=== PATIENT | male | born 2000 | race Hispanic/Latino ===

== ENCOUNTER 2018-05-28 11:32 | Inpatient (IN) | payer MEDICAID, SELFPAY ==
[~2018-05-28 11:32] MED LIST: Dexamethasone 20 MG/5 ML VIAL ONE; Hydrocortisone Sod Succ/PF 100 mg/2 ml Vial ONE; Ketorolac Tromethamine 30 MG/ML VIAL ONE; Lidocaine 1% PF 5 ML VIAL ONE; Ondansetron HCl/PF 4 MG/2 ML Vial ONE; PHENYLEPHRINE-NS 100 MCG/ML 10 ML SYRINGE ONE; PROPOFOL 200 MG/20 ML VIAL ONE; PROVENTIL INHALER 6.7 G (200 INHALATIONS) ONE; Succinylcholine Chloride 20 MG/ML 10 ml SYRINGE FS ONE
[2018-05-28 12:21] LABS: Hemoglobin 15.7 g/dL (14.0-18.0); Mean Corpuscular HGB CONC 34.5 g/dL (32.0-36.0); Mean Corpuscular Hemoglobin 30.3 pg (25.0-35.0); Mean Corpuscular Volume 87.7 fL (78.0-98.0); Mean Platelet Volume 6.5 fL (7.4-10.4); Platelet Count 334 thou/uL (130-400); RBC Distribution Width 11.7 % (11.5-14.5); Red Blood Cell (RBC) Count 5.18 mill/uL (4.00-5.20); White Blood Cell (WBC) Count 19.2 thou/uL (4.8-10.8)
[2018-05-28] MEDS ORDERED: Ondansetron HCl/PF 4 MG/2 ML Vial ONE ×2 (12:23→12:36)
[2018-05-28] MEDS ORDERED: Morphine 4 MG/ML VIAL ONE ×2 (12:23→12:36)
[2018-05-28 12:43] LABS: Band 2 % (5-11); Lymphocytes 13 % (28-48); MDiff Complete? YES; Monocytes 10 % (0-4); Neutrophil 75 % (31-61)
[2018-05-28 12:53] LABS: ALT (SGPT) 172 U/L (8-55); AST (SGOT) 33 U/L (5-34); Albumin 4.6 g/dL (3.5-5.0); Alkaline Phosphatase 53 U/L (Less than 750); Anion Gap 13 mmol/L (10-20); BUN (Urea Nitrogen) 10 mg/dL (8.9-20.6); Bilirubin, Total 1.5 mg/dL (0.2-1.2); Calc. Creatinine Clearance 0 mL/min (70-130); Calcium 9.9 mg/dL (7.8-10.44); Carbon Dioxide 27 mmol/L (22-29); Chloride 98 mmol/L (98-107); Estimated GFR-MDRD 85; Globulin 3.8 g/dL (2.4-3.5); Glucose 125 mg/dL (70-105); Lipase 13 U/L (8-78); Potassium 3.9 mmol/L (3.5-5.1); Protein, Total 8.4 g/dL (6.0-8.3); Sodium 134 mmol/L (136-145)
[2018-05-28] MEDS ORDERED: ISOVUE-370 76%-LOCM 1 ML ONE (13:27)
[2018-05-28] MEDS ORDERED: Iopamidol 370 76% 50 ML VIAL FS ONE (13:27)
[2018-05-28 14:04] LABS: Bilirubin Small (Negative); Blood, Urine Negative (Negative); Clarity CLEAR (Clear); Glucose, Urine (Dipstick) Negative (Negative); Leukocyte Trace (Negative); Nitrite Negative (Negative); Protein, Urine (Dipstick) Trace mg/dL (Neg-Trace); Specific Gravity, Urine 1.024 (1.002-1.036); pH, Urine 5.5 (5.0-9.0)
[2018-05-28 14:06] LABS: Bacteria/HPF None Seen HPF (None Seen); Hyaline Casts/LPF 0-3 HYALINE CAST LPF (0-3 Hyaline); Pathc Cast-AUWi Flag 0.43 (0-2.49); RBC/HPF 0-3 HPF (0-3); Squamous Epithelial 0-3 HPF (0-3); WBC/HPF 0-3 HPF (0-3)
--- NOTE | 2018-05-28 14:26 | CT ---
CT ABDOMEN AND PELVIS WITH IV CONTRAST: Date: 05/28/18 HISTORY: Abdominal pain with onset 2 days ago. Pain originally in the epigastric region, now in the right lowe r quadrant. Nausea. FINDINGS: There is minimal bibasilar atelectasis. The liver, spleen, pancreas, bilateral adrenal glands, kidneys, abdominal aorta, incompletely distend ed urinary bladder, and opacified small bowel demonstrate a normal CT appearance. The appendix is dilated, with mild thickening of the joaquin of the appendix. The appendix measures 14. 0 mm in diameter with appendicolith seen in the proximal appendix and dilatation of the appendix just distal to the appendicolith. There are adjacent periappendiceal inflammatory changes present. No fluid collection or free intraperitoneal gas is seen in the abdomen or pelvis. Tiny amount of free fluid is seen in the pelvis. IMPRESSION: Acute appendicitis with appendicolith in the proximal appendix. Above findings discussed with Dr. Burk in the emergency department on 05/28/18 at 1403 hours. CODE CR. POS: ARMINDA
[2018-05-28] MEDS ORDERED: Acetaminophen 325 MG TAB PO PRN (14:51)
[2018-05-28] MEDS ORDERED: Dextrose 5% in Water 1,000 ML IV PRN (14:51)
[2018-05-28] MEDS ORDERED: Dextrose 50% Abboject 50 ML SYRINGE SLOW IVP PRN (14:51)
[2018-05-28] MEDS ORDERED: Ondansetron HCl/PF 4 MG/2 ML Vial IVP PRN ×2 (14:51→19:05)
[2018-05-28] MEDS ORDERED: Promethazine HCl 25 MG/ML VIAL IM PRN ×2 (14:51→19:05)
[2018-05-28] MEDS ORDERED: MEROPENEM 1 GM/50 ML 1 GM in Premix Bag 1 BAG IVPB SCH (15:00)
[2018-05-28] MEDS ORDERED: traMADol HCl 50 MG TAB PO PRN ×3 (15:02→17:15)
[2018-05-28] MEDS ORDERED: traMADol HCl 50 MG TAB PO SCH (15:30)
[2018-05-28] MEDS ORDERED: Bupivacaine/Epinephrine 0.25% 30 ML VIAL ONE (15:52)
[2018-05-28] MEDS ORDERED: Fentanyl 100 MCG/2 ML VIAL ONE (16:12)
[2018-05-28] MEDS ORDERED: Insulin Regular 300 UNITS/3 ML VIAL ONE (16:24)
[2018-05-28] MEDS ORDERED: Albuterol Sulfate HFA (OR ONLY) ONE (16:51)
[2018-05-28] MEDS ORDERED: HYDROmorphone 2 MG/ML VIAL ONE (17:05)
[2018-05-28] MEDS ORDERED: Ketorolac Tromethamine 30 MG/ML VIAL IVP SCH (18:00)
[2018-05-28] MEDS ORDERED: SUGAMMADEX SODIUM 200 MG/2 ML VIAL ONE (18:24)
[2018-05-28] MEDS ORDERED: Ketorolac Tromethamine 30 MG/ML VIAL ONE (19:03)
[2018-05-28] MEDS ORDERED: HYDROmorphone 2 MG/ML VIAL SLOW IVP PRN (19:05)
[2018-05-28] MEDS ORDERED: Promethazine HCl 25 MG/ML VIAL SLOW IVP PRN (19:05)
--- NOTE | 2018-05-28 19:27 | HP ---
DATE OF ADMISSION: 05/28/2018 HISTORY OF PRESENT ILLNESS: Mr. Olguin is a 18-year-old man presented with 3-day histor y of what started as periumbilical abdominal pain. Twenty-four hours later, the pain settled in the right lower quadrant and associated with multiple episodes of nausea and one bout of emesis. The pat ient denies any fever or chills. He denies any diarrhea. He presented to emergency department today with an exacerbation of his right lower quadrant abdominal pain which he now rates at 10/10. Last m eal was yesterday as currently he is anorexic. PAST MEDICAL HISTORY: Pertinent for asthma. SURGICAL HISTORY: He denies any previous surgeries. SOCIAL HISTORY: The patient lives independently. 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 He denies any cigarette sm oking, ethanol or illicit drug abuse. FAMILY HISTORY: Denies any family history of diabetes mellitus, COPD, heart disease, inflammatory michelle wel disease, essential hypertension or cancer. PREHOSPITALIZATION MEDICATIONS: None. ALLERGIES: Patient denies any known drug allergies. REVIEW OF SYSTEMS: Ten point review of systems essentially unremarkable except for as stated in past medical history and chief complaint. PHYSICAL EXAMINATION: GENERAL: This reveals a 18-year-old normally developed man who is otherwise coherent and interactive and appears stated age. The patient is alert and oriented x3. He appeared to be in no acute distre ss on my evaluation. VITAL SIGNS: Includes blood pressure 129/74, pulse 93, respiratory rate is 18, temperature 103.1 deg chaya Fahrenheit, oxygen saturation 96% on room air. HEENT: Reveals normocephalic and atraumatic. Pupils equal, round, and reactive to light and accommo dation. Extraocular muscles are intact bilaterally. He has no sclerae icterus present. Oral mucosa is pink and moist. No lesions are noted. NECK: Supple. No palpable lymphadenopathy or thyromegaly present. HEART: Reveals regular rate and rhythm, no murmurs or gallops auscultated. LUNGS: Clear to auscultation bilaterally. Breathing regular and unlabored. ABDOMEN: Soft with right lower quadrant tenderness at McBurney's. He has a positive Rovsing sign. Liver and spleen nonpalpable below costal margin. EXTREMITIES: Reveals 2+ radial and pedal pulses bilaterally. No ankle edema is present. NEUROLOGIC: Reveals no focal deficits present. PERTINENT LABORATORY FINDINGS: Today includes a CBC with 19,200 white blood cells, hemoglobin and he matocrit 15.7 and 45.5 respectively. Platelet count is 334,000. Metabolic profile: Sodium 134, pot assium 3.9, chloride is 98, bicarbonate is 27, BUN 10, creatinine is 1.10, glucose 125. Total biliru bin is 1.5, AST and ALT 33 and 172 respectively. Lipase is normal at 13. I have personally reviewed the CT scan of the abdomen and pelvis which is remarkable for dilated appendix with periappendiceal fat stranding and appendicolith the proximal appendix. There is minimum free fluid in the pelvis. H e has no pneumoperitoneum present. IMPRESSION: Acute appendicitis, likely with perforation. PLAN: Laparoscopic appendectomy. Above findings and plan have been discussed with the patient and h is mother at bedside. I have also informed him of the risk and benefits of the proposed surgery. Ri sks include, but not limited to bleeding, infection, injury to bowel or surrounding structures. The patient indicates understanding of information I provided him today. I have answered his questions. The patient has given consent for this admission and surgical intervention.
[2018-05-28] MEDS: Sodium Chloride 0.9% 1,000 ML IV SCH (21:02)
[2018-05-28] MEDS: Piperacillin/Tazobactam 3.375 GM in Sodium Chloride 0.9% 100 ML IVPB SCH (21:03)
[2018-05-28] MEDS: Ketorolac Tromethamine 30 MG/ML VIAL IVP SCH (21:04)
[2018-05-28] MEDS: Famotidine 20 MG TAB PO SCH (21:06)
[2018-05-28] MEDS: Polyethylene Glycol 3350 17 GM Packet PO SCH (21:06)
[2018-05-28] MEDS: Acetaminophen 325 MG TAB PO SCH (21:18)
[2018-05-29] MEDS: Acetaminophen 500 MG TAB PO SCH ×2 (00:52→06:01)
--- NOTE | 2018-05-29 01:02 | OP ---
PREOPERATIVE DIAGNOSIS: Acute appendicitis. POSTOPERATIVE DIAGNOSIS: Acute suppurative appendicitis with perforation. SURGERY PERFORMED: Laparoscopic appendectomy. SURGEON: Truman Kincaid DO ANESTHESIA: General endotracheal. ESTIMATED BLOOD LOSS: 10 mL. FLUIDS GIVEN: 1600 mL of crystalloids. SPONGE AND INSTRUMENT COUNT: Certified as correct x2. COMPLICATIONS: None apparent at the time of operation. INDICATIONS FOR PROCEDURE: This is a 18-year-old man presented with 3-day history of abdomi nal pain. Clinical and radiographic examination was consistent with acute appendicitis for which the patient was brought to the operating room for appendectomy. FINDINGS: Consistent with suppurative dilated appendix with perforation at the base. DESCRIPTION OF PROCEDURE: Informed consent was obtained from the patient who was brought to the oper ating room and placed in supine position. Following general anesthesia, abdomen was sterilely preppe d and draped in usual fashion. The skin below the umbilicus was infiltrated with 0.25% Marcaine with epinephrine. A small curvilinear infraumbilical incision was made using 11-scalpel. Umbilical stal k grasped with a Hugo and elevated. Veress needle was inserted through the incision and placed in the peritoneal cavity through which the abdomen was insufflated with 2.5 liters of CO2 gas. Intraabd ominal pressure noted at 2 mmHg. Following abdominal insufflation, Veress needle was removed and a 5 -mm trocar introduced using the Visiport under laparoscopy. Laparoscopy confirmed proper placement o f the port, no injuries to underlying structures. Additional laparoscopy reveals the right lower kristy drant partially encased by omental adhesions. Under direct laparoscopy, a 5-mm suprapubic and a 12-m m left lower quadrant ports were placed after the overlying skin were infiltrated with 0.25% Marcaine with epinephrine and appropriate incision was made. The patient was placed in a Trendelenburg posit ion, rotated to his left. I introduced a Prestige grasper through the left lower quadrant port using this to bluntly take down omental adhesions to expose a dilated retrocecal suppurative appendix. En do [place] forceps was then introduced through the suprapubic port site grasping the appendix, which was elevated. Further exploration revealed the appendix to be perforated at the base with exposed fecalith. I then used a LigaSure device to sterilely take down the mesoappendix with good hemostasis. Appendix itsel f was divided at the appendico-cecal junction between two Endoloops. Appendix was delivered off the abdominal cavity using an EndoCatch. Operative site was irrigated with saline. A #19 Efrain drain wa s introduced into the operative site and allowed to exit the abdominal cavity through the suprapubic port site. The drain was secured to intra-abdominal wall using 2-0 silk suture. Fascia of the left lower quadrant port was closed using 0 Vicryl suture and Endo closure device under laparoscopy. Abdo men was desufflated. The remainder of the ports were removed and accounted for. Skin incisions were closed using 4-0 Monocryl suture in subcuticular fashion. Dermabond was applied over the incisional closure. The patient tolerated the operation without any apparent complication and was returned to the recovery room in satisfactory condition.
[2018-05-29] MEDS: Ketorolac Tromethamine 30 MG/ML VIAL IVP SCH ×2 (02:03→06:02)
[2018-05-29] MEDS: Piperacillin/Tazobactam 3.375 GM in Sodium Chloride 0.9% 100 ML IVPB SCH ×2 (02:04→06:05)
[2018-05-29] MEDS: Acetaminophen 325 MG TAB PO SCH (02:23)
[2018-05-29] MEDS ORDERED: Sodium Chloride 0.9% 500 ML IVPB SCH (02:45)
[2018-05-29 03:58] LABS: #Neutrophils 15.1 thou/uL (1.40-6.50); %Lymphocytes 5.6 % (28.0-48.0); %Monocytes 5.6 % (0.0-4.0); %Neutrophils 88.7 % (31.0-61.0); Hemoglobin 13.2 g/dL (14.0-18.0); Mean Corpuscular HGB CONC 33.9 g/dL (32.0-36.0); Mean Corpuscular Hemoglobin 30.1 pg (25.0-35.0); Mean Corpuscular Volume 88.9 fL (78.0-98.0); Mean Platelet Volume 6.8 fL (7.4-10.4); Platelet Count 272 thou/uL (130-400); RBC Distribution Width 11.7 % (11.5-14.5); Red Blood Cell (RBC) Count 4.37 mill/uL (4.00-5.20)
[2018-05-29 04:16] LABS: Anion Gap 10 mmol/L (10-20); BUN (Urea Nitrogen) 13 mg/dL (8.9-20.6); Calc. Creatinine Clearance 210 mL/min (70-130); Calcium 8.5 mg/dL (7.8-10.44); Carbon Dioxide 25 mmol/L (22-29); Chloride 104 mmol/L (98-107); Estimated GFR-MDRD Greater than 90; Glucose 181 mg/dL (70-105); Potassium 4.6 mmol/L (3.5-5.1); Sodium 134 mmol/L (136-145)
[2018-05-29 04:39] VITALS: BMI 36.8
[2018-05-29] MEDS: Sodium Chloride 0.9% 1,000 ML IV SCH (06:01)
[2018-05-29] MEDS: Polyethylene Glycol 3350 17 GM Packet PO SCH (08:36)
[2018-05-29] MEDS: Famotidine 20 MG TAB PO SCH (08:43)
[2018-05-29] MEDS ORDERED: Senokot 8.6 MG TAB PO SCH (09:00)
[2018-05-29 11:15] VITALS: BP 116/68; TEMP 98.4
--- NOTE | 2018-05-31 08:40 | HP ---
DATE OF SERVICE: 05/28/[address] Burk in the emergency department. SURGICAL ATTENDING: Dr. Truman Kincaid. REASON FOR CONSULTATION: Acute appendicitis. HISTORY OF PRESENT ILLNESS: Mr. Olguin is a 18-year-old male with a past medical history of well -controlled asthma who presents to the emergency department with 2 days of right lower quadrant abdom inal pain associated with fever and nausea yesterday. The patient has had no episodes like this in t he past. He is noted in the emergency department to have a leukocytosis with a leftward shift. He i s afebrile with stable vital signs and CT abdomen and pelvis that demonstrates acute appendicitis wit h fecalith in the appendix. We are consulted for further management and admission with likely surgic al correction of the acute pathology. I have seen the patient in the emergency department along with his mother. The patient is nontoxic a ppearing, sitting up in bed. States he has had abdominal pain for 2 days. He has been given IV flui ds, meropenem, pain control, Zofran. He is receiving a second liter of IV fluid at this time. Vital signs remained stable. He is now febrile to 103. REVIEW OF SYSTEMS: Twelve-point review of systems pertinent positives per the HPI, otherwise is rega rded as negative. PAST MEDICAL HISTORY: Asthma. ALLERGIES: No known drug allergies. MEDICATIONS: Denies. SOCIAL HISTORY: Patient has a high school education. 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 Denies any smoking, drugs, or alcohol. FAMILY HISTORY: Negative per the patient and the mother at the bedside. SURGICAL HISTORY: Denies. PHYSICAL EXAMINATION: VITAL SIGNS: Temperature is 103.1, blood pressure 129/74, heart rate is 94, respiratory rate is 18. He is 97% on room air. GENERAL: A 18-year-old male sitting up in bed, slight distress because of pain. HEENT: Normocephalic, atraumatic. NECK: Trachea is midline. Mucous membranes are dry. RESPIRATORY: Equal rise and fall. Bilateral breath sounds are clear to auscultation in upper and lo wer bilaterally. CARDIOVASCULAR: Regular rate and rhythm. No murmurs appreciated. Strong pulses in 4 extremities. ABDOMEN: Tender to the right lower quadrant, has some guarding and rigidity. Positive rebound tende rness. Positive peritoneal signs. Pelvis is stable. MUSCULOSKELETAL: Moves all extremities well. No edema. NEUROLOGIC: Alert and oriented to person, place, time, and event. PSYCHIATRIC: Normal mood and affect. LABORATORY DATA: White blood cell count is 19.2 with a leftward shift. Platelets are 334,000, hemog lobin and hematocrit 15.7 and 45.5 respectively. .
== END 2018-05-29 15:00 | disposition home or self-care (01) | DRG 340 ==
LOC: ERS 11:32 → SDC 15:23 → IMCU/EMU 19:17 → SJJU 05-29 10:46
PROVIDERS: ADMIT Surgery; ATTEND Surgery
PROC: 0DTJ4ZZ Resection of Appendix, Percutaneous Endoscopic Approach (ICD-10-PCS; principal; 2018-05-29)
DX: K35.32 Acute appendicitis with perforation, localized peritonitis, and gangrene, without abscess (principal); J45.909 Unspecified asthma, uncomplicated; K38.1 Appendicular concretions; E66.9 Obesity, unspecified; Z68.35 Body mass index [BMI] 35.0-35.9, adult
CPT/HCPCS: 36415; 74177; 80048; 80053; 81003; 81015; 83690; 85025; 88304; 90471; 90686; 96361; 96365; 96375; G0008; J1100; J1170; J1720; J1815; J1885; J2001; J2185; J2270; J2405; J2543; J2704; J2920; J3010; J7050; J7620

== ENCOUNTER 2019-05-09 12:14 | Emergency (ER) | payer BC, OTHER ==
[2019-05-09] MEDS ORDERED: predniSONE 20 MG TAB ONE (13:15)
== END 2019-05-09 14:01 | disposition home or self-care (01) ==
LOC: ERS 12:14
DX: J45.901 Unspecified asthma with (acute) exacerbation (principal); Z79.51 Long term (current) use of inhaled steroids
CPT/HCPCS: 94640; J7512; J7620

== ENCOUNTER 2020-03-09 15:24 | Emergency (ER) | payer BC, OTHER ==
[2020-03-11 12:14] LABS: SARS-CoV-2 MS2 Positive; SARS-CoV-2 N Gene Negative; SARS-CoV-2 S Gene Negative; SARS-CoV-2 orf1ab Negative
== END 2020-03-09 16:23 | disposition home or self-care (01) ==
LOC: ERS 15:24
DX: R50.9 Fever, unspecified (principal); Z20.828 Contact with and (suspected) exposure to other viral communicable diseases
CPT/HCPCS: 87635; 99283; U0003